=== PATIENT | female | born 1975 | race Two or more races ===

== ENCOUNTER 2024-07-28 10:53 | Emergency (ER) | payer OTHER ==
[~2024-07-28] VITALS: Ht 157.5 cm; Wt 60.3 kg
[2024-07-28] MEDS ORDERED: SYNTHROID50 MCG PO (11:30)
[2024-07-28 14:51] LABS: BASO % 0.2 % (0.1-1.2); EOS # 0.03 (0.04-0.54); EOS % 0.3 % (0.7-7.0); HEMATOCRIT 39.4 % (34.1-44.9); HEMOGLOBIN 13.3 g/dL (11.2-15.7); LYMPH # 1.91 (1.18-3.74); MEAN CORPUSCULAR HEMOGLOBIN 28.2 pg (25.6-32.2); MONO # 0.58 (0.24-0.82); MONO % 5.5 % (4.7-12.5); NEUT # 8.06 (1.56-6.13); NEUT % 75.8 % (34.0-71.1); PLATELET COUNT 317 K/uL (163-369); RED BLOOD COUNT 4.72 M/uL (3.93-5.22); RED CELL DISTRIBUTION WIDTH 12.2 % (11.6-14.4)
[2024-07-28 15:13] LABS: BILIRUBIN TOTAL 0.53 mg/dL (0.3-1.2); CALCIUM 9.4 mg/dL (8.5-10.1); CREATININE SERUM 1.02 mg/dL (0.55-1.02); GFR 57.84; GLOBULINA 4.4 G/DL (2.4-3.5); POTASSIUM 3.83 mEq/L (3.5-5.1); TOTAL PROTEIN 8.4 gm/dL (6.4-8.2)
[2024-07-28 15:21] LABS: INR 1.03; PARTIAL THROMBOPLASTIN TIME 24.6 SECONDS (22.0-34.0); PROTHROMBIN TIME 11.2 SECONDS (9.0-11.5)
[2024-07-28 17:31] LABS: PH,URINE 5.5 (5.0-8.0); URINE APPEARANCE Clear; URINE BILIRRUBIN Negative (NEGATIVE); URINE BLOOD Negative; URINE COLOR Yellow; URINE GLUCOSE Negative (NEGATIVE); URINE KETONE Negative (NEGATIVE); URINE LEUKOCYTE Negative; URINE NITRATE Negative; URINE PROTEIN Negative (NEGATIVE); URINE UROBILINOGEN 0.2 E.U./dl
[2024-07-28 17:35] LABS: URINE EPITHELIAL CELLS 5.5 uL (0.0-38.8); URINE WBC 5.2 uL (0.0-23.2)
[2024-07-28] MEDS ORDERED: LEVSIN/SL0.125 MG SL (19:19)
[2024-07-28] MEDS ORDERED: PROBIOTIC1 EAC2 PO (19:19)
[2024-07-28] MEDS ORDERED: PROTONIX40 MG PO (19:19)
== END 2024-07-28 19:24 | disposition home or self-care (01) ==
LOC: ER 11:22
PROVIDERS: Emergency Medicine
DX: K52.9 Noninfective gastroenteritis and colitis, unspecified (principal); K62.5 Hemorrhage of anus and rectum